=== PATIENT | male | born 1960 | race Hispanic/Latino ===

== ENCOUNTER 2018-08-26 07:22 | Observation (INO) | payer SELFPAY ==
[2018-08-26 07:46] LABS: Absolute Lymphocytes (CBC) 1.9 K/uL (0.7-4.9); Absolute Monocytes 1.7 K/uL (0.1-1.3); Absolute Neutrophil 12.7 K/uL (1.8-8.0); Basophils % 0.5 % (0-1.3); Eosinophils % 0.7 % (0-4.4); Hematocrit 47.9 % (39.6-49.0); Lymphocytes % 11.6 % (15.3-44.8); MPV 8.9 fL (7.6-11.3); Monocytes % 10.2 % (3.3-12.3); RBC Red Blood Cell Count 5.46 M/uL (4.33-5.43)
[2018-08-26] MEDS ORDERED: ASPIRIN 81 MG CHEWABLE TABLET ONE (07:46)
[2018-08-26] MEDS ORDERED: NITROGLYCERIN 0.4 MG/TAB SL ONE ×2 (07:47→08:15)
[2018-08-26 08:03] LABS: ALT/SGPT 23 U/L (12-78); AST/SGOT 18 U/L (15-37); Albumin 3.7 g/dL (3.4-5.0); Alkaline Phosphatase 76 U/L (45-117); BUN Blood Urea Nitrogen 11 mg/dL (7-18); Bicarbonate 25 mmol/L (21-32); Bilirubin Direct 0.2 mg/dL (0-0.2); Glucose Level 301 mg/dL (74-106); Magnesium 2.1 mg/dL (1.8-2.4); Potassium 3.7 mmol/L (3.5-5.1); Protein, Total 8.3 g/dL (6.4-8.2); Sodium Level 134 mmol/L (136-145); Troponin (Emerg Dept Use Only) < 0.02 ng/mL (0.0-0.045)
--- NOTE | 2018-08-26 08:18 | RAD REPORT ---
EXAM DESCRIPTION: RAD - Chest Single View - 08/26/2018 7:42 am CLINICAL HISTORY: Chest pain radiating to each shoulder COMPARISON: None. TECHNIQUE: AP portable chest image was obtained 0740 hours . FINDINGS: Lung volumes are low. Atelectasis or infiltrate suspected in the retrocardiac left base. H eart and vasculature are normal. No measurable pleural effusion and no pneumothorax. No acute bony ab normality seen. No acute aortic findings suspected. IMPRESSION: Suspected infiltrate or atelectasis retrocardiac left base.
--- NOTE | 2018-08-26 08:40 | ER ---
Nurse's Notes [facility] Name: Russel Hilliard Age: 57 yrs Sex: Male : 1960 Arrival Date: 08/26/2018 Time: 07:23 Bed 5 Private MD: None, None Diagnosis: Chest pain, unspecified Presentation: 08/26 07:23 Presenting complaint: Patient states: mid-sternal chest pain radiating to cuate shoulders aa5 since 1999 last night. Pt also reports mild SOB, denies cough. Pt reports CP is worse today. 07:23 Transition of care: patient was not received from another setting of care. Onset of aa5 symptoms was August 2018. Risk Assessment: Do you want to hurt yourself or someone else? Patient reports no desire to harm self or others. Care prior to arrival: ASA at 0300 today. 07:23 Method Of Arrival: Ambulatory aa5 07:53 Initial Sepsis Screen: Does the patient meet any 2 criteria? No. Patient's initial ph sepsis screen is negative. Does the patient have a suspected source of infection? No. Patient's initial sepsis screen is negative. 07:53 Acuity: TRENA 3 ph Historical: - Allergies: 07:23 No Known Allergies; aa5 - PMHx: 07:23 Diabetes - NIDDM; Hypertension; aa5 - PSHx: 07:23 None; aa5 - Immunization history:: Adult Immunizations unknown. - Family history:: not pertinent. - Ebola Screening: : No symptoms or risks identified at this time. - Social history:: Smoking status: Patient/guardian denies using tobacco. - Hospitalizations: : No recent hospitalization is reported. Screenin:48 Abuse screen: Denies threats or abuse. Denies injuries from another. Nutritional ph screening: No deficits noted. Tuberculosis screening: No symptoms or risk factors identified. Fall Risk None identified. Assessment: 07:35 General: Appears in no apparent distress. uncomfortable, well groomed, Behavior is ph calm, cooperative, appropriate for age, Denies fever, feeling ill. Pain: Complains of pain in anterior aspect of left upper chest Pain does not radiate. Pain currently is 8 out of 10 on a pain scale. Quality of pain is described as pressure, Pain began "last night". Neuro: Level of Consciousness is awake, alert, obeys commands, Oriented to person, place, time, situation. Cardiovascular: Reports chest pain, shortness of breath, Denies lightheadedness, nausea, vomiting, Capillary refill < 3 seconds in bilateral fingers Patient's skin is warm and dry. Rhythm is sinus rhythm Chest pain quality is pressure, is located in left anterior chest wall. Respiratory: Airway is patent Respiratory effort is even, unlabored, Respiratory pattern is regular, symmetrical, Breath sounds are clear bilaterally. GI: No signs and/or symptoms were reported involving the gastrointestinal system. Derm: Skin is intact, is healthy with good turgor, Skin is pink, warm \\T\\ dry. Musculoskeletal: Circulation, motion, and sensation intact. Range of motion: intact in all extremities. 08:48 Reassessment: Patient appears in no apparent distress at this time. Patient and/or ph family updated on plan of care and expected duration. Pain level reassessed. Patient is alert, oriented x 3, equal unlabored respirations, skin warm/dry/pink. Pt reports that pain has decreased to 6/10, ERP at bedside to speak w/ pt about being admitted to hospital, VSS at this time. 10:13 Reassessment: Patient appears in no apparent distress at this time. Patient and/or ph family updated on plan of care and expected duration. Pain level reassessed. Patient is alert, oriented x 3, equal unlabored respirations, skin warm/dry/pink. Report called to 4th floor, pt taken to room via wheelchair by home service technician. Vital Signs: 07:25 Weight 99.79 kg (R); Height 5 ft. 6 in. (167.64 cm) (R); aa5 07:30 BP 170 / 100; Pulse 97; Resp 18; Temp 97.9; Pulse Ox 94% on R/A; Pain 8/10; ph 08:00 BP 138 / 87; Pulse 102; ch 08:29 BP 142 / 91; Pulse 101; Resp 18; Pulse Ox 99% ; ch 09:45 BP 161 / 97; Pulse 110; Resp 16; Temp 99.1(TE); Pulse Ox 96% on R/A; ph 07:25 Body Mass Index 35.51 (99.79 kg, 167.64 cm) aa5 ED Course: 07:23 Patient arrived in ED. mr 07:23 Arm band placed on Patient placed in an exam room, on a stretcher. aa5 07:24 None, None is Private Physician. mr 07:25 Riley Padilla MD is Attending Physician. rn 07:34 Zoie Dean, ROXANNA is Primary Nurse. ph 07:35 EKG done, by production technologist. reviewed by Riley Padilla MD. at1 07:35 Inserted saline lock: 20 gauge in right antecubital area, using aseptic technique. ph Blood collected. 07:39 X-ray completed. Portable x-ray completed in exam room. Patient tolerated procedure jb2 well. 07:39 XRAY Chest (1 view) In Process Unspecified. EDMS 07:53 Triage completed. ph 08:39 Leandro Bonner DO is Hospitalizing Provider. rn 08:48 Patient admitted, IV remains in place. Patient maintains SpO2 saturation greater than ph 95% on room air. 09:44 Patient has correct armband on for positive identification. Placed in gown. Bed in low ph position. Call light in reach. Side rails up X2. hospital monitor on. Pulse ox on. NIBP on. Warm blanket given. 10:01 Flu Sent. 5 10:01 Strep Sent. [facility] 10:01 Flu and/or RSV swab sent to lab. Strep swab sent to lab. [facility] 10:14 No provider procedures requiring assistance completed. ph Administered Medications: 07:44 Drug: Aspirin Chewable Tablet 324 mg Route: PO; ph 08:50 Follow up: Response: No adverse reaction ph 07:44 Drug: Nitroglycerin 0.4 mg Route: Sublingual; ph 08:50 Follow up: Response: No adverse reaction; Pain is decreased ph 08:05 Drug: Nitroglycerin 0.4 mg Route: Sublingual; 08:50 Follow up: Response: No adverse reaction; Pain is decreased ph Outcome: 08:39 Decision to Hospitalize by Provider. rn 10:14 Admitted to Tele accompanied by tech, family with patient, via wheelchair, room 416, ph with chart. 10:14 Condition: stable 10:18 Patient left the ED. ph Signatures: Dispatcher [employer] EDMS Love Barton, RN RN mary lou Chen Ed Yuen jb2 Riley Padilla MD MD rn Calderon, Audri, RN RN aa5 Consuelo Dunham, reed repairer EKG Tat1 Zoie Dean RN RN ph Martinez, Maria 5
--- NOTE | 2018-08-26 08:40 | EDPHYS ---
Physician Documentation [facility] Name: Russel Hilliard Age: 57 yrs Sex: Male : 1960 Arrival Date: 08/26/2018 Time: 07:23 Bed 5 Private MD: None, None ED Physician Riley Padilla HPI: 08/26 07:28 This 57 yrs old Male presents to ER via Unassigned with complaints of Chest rn Pain. 07:28 The patient or guardian reports chest pain that is located primarily in the substernal rn area. Onset: last night. The pain radiates to both shoulders. Associated signs and symptoms: Pertinent positives: lightheadedness, nausea, Pertinent negatives: abdominal pain, cough, diaphoresis, syncope, vomiting. The chest pain is described as a pressure. Duration: The patient or guardian reports a single episode, that is still ongoing. Modifying factors: The symptoms are alleviated by nothing. the symptoms are aggravated by nothing. Severity of pain: At its worst the pain was moderate in the emergency department the pain is unchanged. The patient has experienced a previous episode. Reports chest pain since last night, assoc with sob and nausea/lightheadedness, no syncope, reports able to sleep only about 3 hours last night, still having pain, told in [place] in past had "pre-heart attack", no abd pain.. Historical: - Allergies: 07:23 No Known Allergies; aa5 - PMHx: 07:23 Diabetes - NIDDM; Hypertension; aa5 - PSHx: 07:23 None; aa5 - Immunization history:: Adult Immunizations unknown. - Family history:: not pertinent. - Ebola Screening: : No symptoms or risks identified at this time. - Social history:: Smoking status: Patient/guardian denies using tobacco. - Hospitalizations: : No recent hospitalization is reported. ROS: 07:28 Constitutional: Negative for fever, chills, and weight loss, Eyes: Negative for injury, rn pain, redness, and discharge, Neck: Negative for injury, pain, and swelling, Cardiovascular: + chest pain Respiratory: Negative for shortness of breath, cough, wheezing, and pleuritic chest pain, Abdomen/GI: Negative for abdominal pain, vomiting, diarrhea, and constipation, MS/Extremity: Negative for injury and deformity, Skin: Negative for injury, rash, and discoloration, Neuro: Negative for headache, weakness, numbness, tingling, and seizure. Exam: 07:28 Constitutional: This is a well developed, well nourished patient who is awake, alert, rn appears concerned and uncomfortable Head/Face: Normocephalic, atraumatic. Eyes: Pupils equal round and reactive to light, extra-ocular motions intact. Lids and lashes normal. Conjunctiva and sclera are non-icteric and not injected. Cornea within normal limits. Periorbital areas with no swelling, redness, or edema. ENT: MMM Neck: Trachea midline, no thyromegaly or masses palpated, and no cervical lymphadenopathy. Supple, full range of motion without nuchal rigidity, or vertebral point tenderness. No Meningismus. Cardiovascular: tachycardic, regular, no murmur Respiratory: Lungs have equal breath sounds bilaterally, clear to auscultation. No rales, rhonchi or wheezes noted. No increased work of breathing, no retractions or nasal flaring. Abdomen/GI: soft, non-tender Skin: Warm, dry with normal turgor. Normal color with no rashes, no lesions, and no evidence of cellulitis. MS/ Extremity: Pulses equal, no cyanosis. Neurovascular intact. Full, normal range of motion. Equal circumference. Neuro: Awake and alert, GCS 15, oriented to person, place, time, and situation. Cranial nerves II-XII grossly intact. Motor strength 5/5 in all extremities. Sensory grossly intact. Cerebellar exam normal. Normal gait. Vital Signs: 07:25 Weight 99.79 kg (R); Height 5 ft. 6 in. (167.64 cm) (R); aa5 07:30 BP 170 / 100; Pulse 97; Resp 18; Temp 97.9; Pulse Ox 94% on R/A; Pain 8/10; ph 08:00 BP 138 / 87; Pulse 102; ch 08:29 BP 142 / 91; Pulse 101; Resp 18; Pulse Ox 99% ; ch 09:45 BP 161 / 97; Pulse 110; Resp 16; Temp 99.1(TE); Pulse Ox 96% on R/A; ph 07:25 Body Mass Index 35.51 (99.79 kg, 167.64 cm) aa5 MDM: 07:25 Patient medically screened. rn 08:38 Differential diagnosis: acute myocardial infarction, acute pericarditis, coronary rn artery disease gastroesophageal reflux disease (GERD), pericarditis, pleurisy, pneumonia, pneumothorax. The patient was given aspirin in the Emergency Department. Data reviewed: vital signs, nurses notes, lab test result(s), EKG, radiologic studies, plain films, and as a result, I will admit patient. Counseling: I had a detailed discussion with the patient and/or guardian regarding: the historical points, exam findings, and any diagnostic results supporting the discharge/admit diagnosis, lab results, radiology results, the need for further work-up and treatment in the hospital. Response to treatment: the patient's symptoms have markedly improved after treatment, the patient's symptoms have resolved after treatment, the patient's condition has returned to base line, and as a result, I will admit patient. ED course: Pt with improvement after nitro x 2, no further chest pain. CXR showed suspected retrocardiac infiltrate but patient without cough or fever, will admit for further cardiac evaluation. . 08/26 07:26 Order name: Basic Metabolic Panel; Complete Time: 08:03 08/26 07:26 Order name: CBC with Diff; Complete Time: 07:56 08/26 07:26 Order name: LFT's; Complete Time: 08:03 08/26 07:26 Order name: Magnesium; Complete Time: 08:03 08/26 07:26 Order name: Troponin (emerg Dept Use Only); Complete Time: 08:03 08/26 09:29 Order name: Procalcitonin 08/26 07:26 Order name: XRAY Chest (1 view); Complete Time: 08:33 08/26 07:26 Order name: EKG; Complete Time: 07:27 08/26 07:26 Order name: Cardiac monitoring; Complete Time: 07:34 08/26 09:32 Order name: Strep 08/26 09:32 Order name: Flu 08/26 07:26 Order name: EKG - Nurse/Tech; Complete Time: 07:34 08/26 07:26 Order name: IV Saline Lock; Complete Time: 07:34 08/26 07:26 Order name: Labs collected and sent; Complete Time: 07:34 rn 08/26 07:26 Order name: O2 Per Protocol; Complete Time: 07:34 rn 08/26 07:26 Order name: O2 Sat Monitoring; Complete Time: 07:34 rn Administered Medications: 07:44 Drug: Aspirin Chewable Tablet 324 mg Route: PO; ph 08:50 Follow up: Response: No adverse reaction ph 07:44 Drug: Nitroglycerin 0.4 mg Route: Sublingual; ph 08:50 Follow up: Response: No adverse reaction; Pain is decreased ph 08:05 Drug: Nitroglycerin 0.4 mg Route: Sublingual; ch 08:50 Follow up: Response: No adverse reaction; Pain is decreased ph Disposition: 08/26/18 08:39 Hospitalization ordered by Leandro Bonner for Observation. Preliminary diagnosis is Chest pain, unspecified. - Bed requested for Telemetry/MedSurg (observation). - Status is Observation. ph - Condition is Stable. - Problem is new. - Symptoms have improved. UTI on Admission? No Signatures: Dispatcher [employer] EDMS Love Barton RN RN ch Nieto, Roman, MD MD rn Calderon, Audri, RN RN aa5 Zoie Dean RN RN Rosey Toure RN RN df Corrections: (The following items were deleted from the chart) 09:44 08:39 Hospitalization Ordered by Leandro Bonner DO for Observation. Preliminary df diagnosis is Chest pain, unspecified. Bed requested for Telemetry/MedSurg (observation). Status is Observation. Condition is Stable. Problem is new. Symptoms have improved. UTI on Admission? No. rn 10:18 09:44 08/26/2018 08:39 Hospitalization Ordered by Leandro Bonner DO for Observation. ph Preliminary diagnosis is Chest pain, unspecified. Bed requested for Telemetry/MedSurg (observation). Status is Observation. Condition is Stable. Problem is new. Symptoms have improved. UTI on Admission? No. df
[2018-08-26] MEDS ORDERED: ONDANSETRON 4 MG/2 ML VIAL IV PRN (10:58)
[2018-08-26] MEDS ORDERED: NITROGLYCERIN 0.4 MG/TAB SL PRN (10:58)
[2018-08-26] MEDS ORDERED: MORPHINE 4 MG/ML SYR IV PRN (10:58)
[2018-08-26] MEDS ORDERED: ACETAMINOPHEN 500 MG TAB PO PRN (10:58)
[2018-08-26] MEDS: CEFTRIAXONE/SWI 1gm 1 GM/10 ML SYR IV SCH (11:41)
[2018-08-26] MEDS: NA CHLORIDE 0.9% 1,000 ML IV SCH (11:41)
[2018-08-26] MEDS ORDERED: BENZONATATE 100 MG CAP PO PRN (11:42)
[2018-08-26 11:48] LABS: CKMB Creatine Kinase MB < 1.0 ng/mL (0.3-3.6); Thyroid Stimulating Hormone 0.513 uIU/mL (0.360-3.740)
--- NOTE | 2018-08-26 11:51 | P.HP ---
Certification for Inpatient Patient admitted to: Observation With expected LOS: <2 Midnights Patient will require the following post-hospital care: None Practitioner: I am a practitioner with admitting privileges, knowledge of patient current condition, hospital course, and medical plan of care. Services: Services provided to patient in accordance with Admission requirements found in Title 42 Section 412.3 of the Code of Federal Regulations Patient History Date of Service: 08/26/18 Primary Care Provider: None Reason for admission: Left-sided chest pain History of Present Illness: 57-year-old male presented to the emergency room with left-sided chest pain. Patient reported left-sided chest pain. Patient denied any fever, chills, cough , or shortness of breath. Patient came to the ER for further evaluation. Patient was given aspirin and nitroglycerin which helped with the pain. Patient with history of hypertension and diabetes. In the ER patient given aspirin and nitro with improvement of symptoms. Blood pressure elevated at 151/94. Heart rate 110. White count elevated. CBC stable. Initial cardiac enzymes unremarkable. Patient was admitted for further evaluation. When I saw the patient in the ER, patient appeared stable. Oxygen saturations within normal range. Patient denies any cough, congestion or sick contacts. Chest x-ray showed possible left lower lobe pneumonia. After further review of the lab strep test was positive along with influenza B. Allergies No Known Allergies Allergy (Unverified 08/26/18 10:00) Home medications list reviewed: Yes Home Medications: Aspirin 81 mg PO DAILY 08/26/18 Lisinopril 10 mg PO DAILY 08/26/18 Metformin HCl [Glucophage*] 500 mg PO DAILY 08/26/18 Nifedipine [Nifedipine ER] 30 mg PO DAILY 08/26/18 - Past Medical/Surgical History Diabetic: Yes -: Diabetes mellitus type 2, non-insulin dependent -: Hypertension Past Surgical History: Patient denies surgical history Psychosocial/ Personal History: Patient is . He works as an aviation electrician. He has 3 children. - Family History Father -: Heart disease, Diabetes - Social History Smoking Status: Never smoker Alcohol use: Yes CD- Drugs: No Caffeine use: Yes Place of Residence: Home Review of Systems General: As per HPI Eyes: Unremarkable ENT: Unremarkable Respiratory: Unremarkable Cardiovascular: Chest Pain, As per HPI Gastrointestinal: Unremarkable Genitourinary: Unremarkable Musculoskeletal: Unremarkable Integumentary: Unremarkable Neurological: Unremarkable Lymphatics: Unremarkable Physical Examination - Vital Signs Temperature: 99.1 F Blood Pressure: 161/97 Pulse: 110 Respirations: 16 - Physical Exam General: Alert, In no apparent distress, Oriented x3, Cooperative HEENT: Atraumatic, Normocephalic, PERRLA, Mucous membr. moist/pink Neck: Supple, No Thyromegaly Respiratory: Clear to auscultation bilaterally, Normal air movement Cardiovascular: Normal pulses, Regular rate/rhythm Gastrointestinal: Normal bowel sounds, Soft and benign, Non-distended, No tenderness, No masses, No rebound, No guarding Musculoskeletal: No erythema, No tenderness, No warmth Integumentary: No tenderness/swelling, No erythema, No warmth, No cyanosis Neurological: Normal speech, Normal strength at 5/5 x4 extr, Normal tone, Normal affect Lymphatics: No axilla or inguinal lymphadenopathy - Studies Laboratory Data (last 24 hrs) 08/26/18 07:30: WBC 16.5 H, Hgb 16.4, Hct 47.9, Plt Count 301 08/26/18 07:30: Sodium 134 L, Potassium 3.7, BUN 11, Creatinine 0.91, Glucose 301 H, Magnesium 2.1, Total Bilirubin 1.0, AST 18, ALT 23, Alkaline Phosphatase 76 Assessment and Plan - Plan Impression: Left-sided chest pain likely noncardiac positive for Streptococcus and influenza B Possible left lower lobe pneumonia Diabetes mellitus type 2, [id number] Hypertension Plan: Left-sided chest pain likely noncardiac positive for Streptococcus and influenza B: Patient will be admitted for further evaluation. Left-sided chest pain resolved with aspirin and nitroglycerin. Patient will need to be evaluated from a cardiac standpoint. Will continue to monitor on telemetry and obtain cardiac enzymes. Echocardiogram and cardiac stress test to be ordered. After further review and lab ordered, patient was found to be positive for Streptococcus and influenza B. Will start Tamiflu. Patient already started on Rocephin and Zithromax. Will recheck chest x-ray in the morning. Will continue with IV fluids. Will provide medication for cough and congestion. Will reassess tomorrow. Await further recommendations from cardiology. Suspect chest pain related to underlying pneumonia. Possible left lower lobe pneumonia: Suspect underlying pneumonia. Will start Rocephin and Zithromax. Will reassess tomorrow. Will recheck chest x-ray tomorrow. Diabetes mellitus type 2, [id number]: Will continue with sliding scale. Will monitor and adjust appropriately. Hypertension: Will start metoprolol. Will continue with lisinopril. Blood pressure needs to be better controlled. Will make further adjustments. Discharge Plan: Home Plan to discharge in: 24 Hours - Advance Directives Does patient have a Living Will: No Does patient have a Durable POA for Healthcare: No - Code Status/Comfort Care Code Status Assessed: Yes (Patient full code.) Time Spent Managing Pts Care (In Minutes): 55
[2018-08-26] MEDS ORDERED: AZITHROMYCIN IV 500 MG in NA CHLORIDE 0.9% 250 ML IVPB SCH (12:00)
--- NOTE | 2018-08-26 13:26 | EKG ---
Test Date: 2018-08-26 Test Time: 07:26:50 Nuclear Instructor: ANEESH MEASUREMENT RESULTS: Intervals: Rate: 111 OK: 198 QRSD: 100 QT: 336 QTc: 456 Combs: P: 54 OK: 198 QRS: -50 T: 21 INTERPRETIVE STATEMENTS: Sinus tachycardia Left axis deviation Incomplete right bundle branch block Abnormal ECG No previous ECG available for comparison Electronically Signed On 08-26-18 13:25:47 BRAKE HOLDER by Ad Hines
[2018-08-26] MEDS: INSULIN -REGULAR HUMAN 50 UNIT/0.5 ML ML SQ SCH ×3 (13:33→21:35)
[2018-08-26 14:39] VITALS: BMI 35.5
[2018-08-26 15:39] LABS: Creatine Phosphokinase 91 U/L (39-308); Troponin I < 0.02 ng/mL (0.0-0.045)
[2018-08-26] MEDS ORDERED: ENOXAPARIN 40 MG/0.4 ML SQ SCH (17:00)
[2018-08-26] MEDS: METOPROLOL TAR 25 MG TAB PO SCH (17:38)
[2018-08-26 18:35] LABS: Urine Appearance CLEAR; Urine Bilirubin NEGATIVE (NEG); Urine Blood NEGATIVE (NEG); Urine Color YELLOW; Urine Glucose 3+ (NEG); Urine Protein 3+ (NEG); Urine Specific Gravity >=1.030 (1.005-1.030)
[2018-08-26 18:44] LABS: Urine Microscopic Reflex ORDER UMIC
[2018-08-26 18:52] LABS: Urine Bacteria <20 /HPF (NONE SEEN); Urine Culture Reflex Order NOT NEEDED; Urine Mucus 1+ /HPF (NONE SEEN); Urine RBC <5 /HPF (NONE SEEN)
--- NOTE | 2018-08-26 19:05 | CON ---
History Of Present Illness: Mr. Hilliard is 57. He came to the hospital with pain. The pain was ple uritic, more in the left side of his chest, some in the back. He has never had myocardial infarction or stroke. Since he has been here, it is apparent he has a left retrocardiac infiltrate consistent with pneumonia. He also has an elevated white blood cell count with a left shift. Really seems that his chest pain is caused by pneumonia, not by something else. He has never had any vascular disease . Does not use tobacco presently, he has smoked. Never had any testing done on his heart. He has u nderlying diabetes and obesity. Medications: He takes nifedipine, metformin, lisinopril, and aspirin. Allergies: HE HAS NO ALLERGIES. Physical Examination: Vital signs: Five feet and 6 inches, 220 pounds. HEENT: Normal. Lungs: Clear. Cardiac: Normal. Abdomen: Soft. Extremities: Normal. Chest x-ray, left retrocardiac infiltrate. I am a little surprised that I do not actually hear somet kenya there, but all of this points to be pneumonia. I do not think we need to do an extensive cardia c workup. Thank you very much for your kind referral of Mr. Cody Hilliard. I will follow him with you. MARILY/SATHYA Voice ID: [id number] Report ID: [id number]
[2018-08-26] MEDS: LISINOPRIL 10 MG TAB PO SCH (21:35)
[2018-08-26] MEDS: FAMOTIDINE 20 MG TAB PO SCH (21:35)
[2018-08-26] MEDS: OSELTAMIVIR 75 MG CAP PO SCH (21:35)
[2018-08-26] MEDS: ATORVASTATIN 40 MG TAB PO SCH (21:35)
[2018-08-26] MEDS: GUAIFENESIN 600 MG SA TAB PO SCH (21:35)
[2018-08-26 23:20] LABS: Troponin I 2.92 ng/mL (0.0-0.045)
[2018-08-27] MEDS ORDERED: ENOXAPARIN 60 MG/0.6 ML SQ ONE (00:27)
[2018-08-27 03:43] LABS: Absolute Lymphocytes (CBC) 2.1 K/uL (0.7-4.9); Absolute Monocytes 1.8 K/uL (0.1-1.3); Absolute Neutrophil 8.7 K/uL (1.8-8.0); Basophils % 0.8 % (0-1.3); Eosinophils % 1.4 % (0-4.4); Hematocrit 38.4 % (39.6-49.0); RBC Red Blood Cell Count 4.38 M/uL (4.33-5.43)
[2018-08-27 03:50] LABS: Magnesium 2.1 mg/dL (1.8-2.4); Potassium 3.6 mmol/L (3.5-5.1)
[2018-08-27] MEDS: NA CHLORIDE 0.9% 1,000 ML IV SCH (06:00)
[2018-08-27] MEDS: METOPROLOL TAR 25 MG TAB PO SCH (07:18)
--- NOTE | 2018-08-27 08:32 | RAD REPORT ---
EXAM DESCRIPTION: RAD - Chest Pa And Lat (2 Views) - 08/27/2018 6:41 am CLINICAL HISTORY: follow up chest pain, evalaute for pneumonia Chest pain. COMPARISON: Chest Single View dated 08/26/2018 FINDINGS: Since the comparative study, there has been mild worsening in the left base retrocardiac i nfiltrate likely representing pneumonia. The heart is upper limit of normal in size. No displaced fra ctures. IMPRESSION: Mild worsening of left retrocardiac pneumonia since prior study.
[2018-08-27] MEDS: INSULIN -REGULAR HUMAN 50 UNIT/0.5 ML ML SQ SCH ×4 (09:04→22:32)
[2018-08-27] MEDS: ENOXAPARIN 100 MG/ML SYR SQ SCH ×2 (09:04→22:32)
[2018-08-27] MEDS: CEFTRIAXONE/SWI 1gm 1 GM/10 ML SYR IV SCH (09:04)
[2018-08-27] MEDS: GUAIFENESIN 600 MG SA TAB PO SCH ×2 (09:05→22:31)
[2018-08-27] MEDS: ASPIRIN EC 81 MG TAB PO SCH (09:05)
[2018-08-27] MEDS: FAMOTIDINE 20 MG TAB PO SCH ×2 (09:06→22:31)
[2018-08-27] MEDS: OSELTAMIVIR 75 MG CAP PO SCH ×2 (09:08→22:31)
[2018-08-27] MEDS ORDERED: GLUCAGON 1 MG/VIAL IM PRN (10:06)
[2018-08-27] MEDS ORDERED: D50W 25 GM/50 ML SYRINGE IV PRN (10:06)
--- NOTE | 2018-08-27 10:13 | P.PN ---
Subjective Date of Service: 08/27/18 Primary Care Provider: None Chief Complaint: Left-sided chest pain Subjective: Improving (Patient without any significant fever, cough, shortness of breath. Troponin elevated last night. Patient now on full-dose Lovenox. No chest pain noted.) Physical Examination - Vital Signs Temperature: 97.9 F Blood Pressure: 163/95 Pulse: 94 Respirations: 20 Pulse Ox (%): 94 - Physical Exam General: Alert, In no apparent distress, Oriented x3, Cooperative HEENT: Atraumatic Neck: Supple Respiratory: Crackles/rales (Slight crackles to the left base) Cardiovascular: Normal pulses, Regular rate/rhythm Gastrointestinal: Normal bowel sounds, Soft and benign, Non-distended, No tenderness, No masses, No rebound, No guarding Musculoskeletal: No erythema, No tenderness, No warmth Integumentary: No tenderness/swelling, No erythema, No warmth, No cyanosis Neurological: Normal speech, Normal strength at 5/5 x4 extr, Normal tone, Normal affect - Studies Medications List Reviewed: Yes Assessment & Plan Discharge Plan: Home Plan to discharge in: 24 Hours Physician Review Additional Text: Impression: Left-sided chest pain secondary to Streptococcus left-sided pneumonia with positive influenza B and elevated troponin likely non ST wave [place] Diabetes mellitus type 2, [id number] Hypertension Hyperlipidemia Obesity, BMI 35.5 Plan: Left-sided chest pain secondary to Streptococcus left-sided pneumonia with positive influenza B and elevated troponin likely non ST wave [place]: Patient clinically stable at this time. Troponin increased yesterday likely from stress related to pneumonia and influenza. Case discussed at length with cardiology. Will continue with Lovenox full dose. No need for cardiac evaluation at this time due to pneumonia and influenza. Will check echocardiogram. If echocardiogram significantly abnormal patient may require heart catheterization prior to discharge. Otherwise heart catheterization can be done as an outpatient. Will continue monitor patient Overnite. Will adjust IV antibiotics to oral. Patient now on aspirin, Lipitor, and metoprolol. Patient also on lisinopril. Will continue to adjust medication. Will reassess tomorrow for possible discharge. Will recheck EKG. Await further recommendations from cardiology. Diabetes mellitus type 2, [id number]: Will check A1c. Will continue sliding scale. Will start basal insulin. Patient may require basal insulin at discharge. Hypertension: Will increase metoprolol for better blood pressure control. Will continue with his lisinopril. Will continue to monitor and adjust appropriately. Hyperlipidemia: Suspect elevated lipid panel. Due to elevation of troponin, statin medication has been started. Will check lipid panel. Obesity, BMI 35.5: Will continue to address lifestyle modification education. Time Spent Managing Pts Care (In Minutes): 55
[2018-08-27] MEDS: METOPROLOL TAR 50 MG TAB PO SCH (17:03)
[2018-08-27] MEDS: ATORVASTATIN 40 MG TAB PO SCH (21:00)
[2018-08-27] MEDS ORDERED: INSULIN GLARGINE 100 UNITS/ML SQ SCH (21:00)
[2018-08-27] MEDS: LISINOPRIL 10 MG TAB PO SCH (22:30)
[2018-08-27] MEDS: AMOX/K CLAV 875 MG TAB PO SCH (22:31)
[2018-08-28] MEDS: METOPROLOL TAR 50 MG TAB PO SCH (05:08)
[2018-08-28] MEDS: NA CHLORIDE 0.9% 1,000 ML IV SCH (05:08)
[2018-08-28 06:26] LABS: Absolute Lymphocytes (CBC) 2.3 K/uL (0.7-4.9); Absolute Monocytes 1.2 K/uL (0.1-1.3); Absolute Neutrophil 5.4 K/uL (1.8-8.0); Basophils % 0.9 % (0-1.3); Eosinophils % 4.2 % (0-4.4); Hematocrit 40.9 % (39.6-49.0); Lymphocytes % 24.6 % (15.3-44.8); MPV 8.8 fL (7.6-11.3); Monocytes % 12.9 % (3.3-12.3); RBC Red Blood Cell Count 4.66 M/uL (4.33-5.43)
[2018-08-28 06:44] LABS: BUN Blood Urea Nitrogen 12 mg/dL (7-18); Bicarbonate 25 mmol/L (21-32); Glucose Level 176 mg/dL (74-106); HDL Cholesterol 35 mg/dL (40-60); LDL Cholesterol, Calculated 96 (<130); Magnesium 2.3 mg/dL (1.8-2.4); Potassium 3.7 mmol/L (3.5-5.1); Sodium Level 138 mmol/L (136-145)
--- NOTE | 2018-08-28 07:23 | ECHO ---
HEIGHT: 5 ft 6 in WEIGHT: 220 lb 0 oz DATE OF STUDY: 08/27/[address]: Leandro Bonner DO 2-DIMENSIONAL: YES M.MODE: YES DOPPLER: YES COLOR FLOW: YES TDS: PORTABLE: DEFINITY: BUBBLE STUDY: DIAGNOSIS: CHEST PAIN CARDIAC HISTORY: CATHERIZATION: NO SURGERY: NO PROSTHETIC VALVE: NO PACEMAKER: NO MEASUREMENTS (cm) DIASTOLIC (NORMALS) SYSTOLIC (NORMALS) IVSd 1.3 (0.6-1.2) LA Diam 4.0 (1.9-4.0) LVEF 51% LVIDd 5.0 (3.5-5.7) LVIDs 3.7 (2.0-3.5) %FS 26% LVPWd 1.6 (0.6-1.2) Ao Diam 3.4 (2.0-3.7) 2 DIMENSIONAL ASSESSMENT: RIGHT ATRIUM: NORMAL LEFT ATRIUM: DILATED RIGHT VENTRICLE: NORMAL LEFT VENTRICLE: LEFT VENTRICULAR HYPERTROPHY TRICUSPID VALVE: NORMAL MITRAL VALVE: NORMAL PULMONIC VALVE: NORMAL AORTIC VALVE: NORMAL PERICARDIAL EFFUSION: NONE AORTIC ROOT: NORMAL LEFT VENTRICULAR WALL MOTION: NORMAL DOPPLER/COLOR FLOW: NORMAL COMMENTS: NORMAL LEFT VENTRICULAR EJECTION FRACTION. DILATED LEFT ATRIUM. LEFT VENTRICULAR HYPERTROPHY. TECHNOLOGIST: KAI YOUNG
[2018-08-28] MEDS: INSULIN -REGULAR HUMAN 50 UNIT/0.5 ML ML SQ SCH ×2 (07:30→12:23)
[2018-08-28] MEDS ORDERED: LISINOPRIL 10 MG TAB PO SCH (09:00)
--- NOTE | 2018-08-28 10:03 | P.DS ---
Admission Date: 08/26/18 Discharge Date: 08/28/18 Primary Care Provider: None Disposition: ROUTINE DISCHARGE Discharge Condition: GOOD Reason for Admission: Left-sided chest pain Consultations: Cardiology-Dr. Hines/Dr. Obrien Procedures: ECHO: EF 51% LEFT VENTRICULAR WALL MOTION: NORMAL DOPPLER/COLOR FLOW: NORMAL COMMENTS: NORMAL LEFT VENTRICULAR EJECTION FRACTION. DILATED LEFT ATRIUM. LEFT VENTRICULAR HYPERTROPHY. CXR: CLINICAL HISTORY: follow up chest pain, evalaute for pneumonia Chest pain. COMPARISON: Chest Single View dated 08/26/2018 FINDINGS: Since the comparative study, there has been mild worsening in the left base retrocardiac infiltrate likely representing pneumonia. The heart is upper limit of normal in size. No displaced fractures. IMPRESSION: Mild worsening of left retrocardiac pneumonia since prior study. Medical Problem List: Left-sided chest pain secondary to Streptococcus left retrocardiac pneumonia with positive influenza B and elevated troponin likely related to non ST wave [place] Diabetes mellitus type 2, [id number], A1c 9.7 Hypertension Hyperlipidemia Obesity, BMI 35.5 GERD Brief History of Present Illness: 57-year-old male presented to the emergency room with left-sided chest pain. Patient reported left-sided chest pain. Patient denied any fever, chills, cough , or shortness of breath. Patient came to the ER for further evaluation. Patient was given aspirin and nitroglycerin which helped with the pain. Patient with history of hypertension and diabetes. In the ER patient given aspirin and nitro with improvement of symptoms. Blood pressure elevated at 151/94. Heart rate 110. White count elevated. CBC stable. Initial cardiac enzymes unremarkable. Patient was admitted for further evaluation. When I saw the patient in the ER, patient appeared stable. Oxygen saturations within normal range. Patient denies any cough, congestion or sick contacts. Chest x-ray showed possible left lower lobe pneumonia. After further review of the lab strep test was positive along with influenza B. Hospital Course: Patient presented with left-sided chest pain. Patient found to be positive for Streptococcus and influenza B. pneumonia was also identified to the left retrocardiac area. Patient was admitted for further evaluation. In the process patient had initial troponin that was unremarkable. Subsequent troponin was elevated. This likely indicated non ST wave [place]. Patient seen and evaluated by Cardiology. No cardiac intervention was recommended due to his pneumonia and influenza. Echocardiogram unremarkable with normal ejection fraction. Patient without significant chest pain, shortness of breath, fever or chills. Patient did well in his stay. At discharge patient will continue with Augmentin 875 mg 1 pill twice daily for 7 days and Tamiflu 75 mg 1 pill twice daily for 2 days. Tessalon Perles 100 mg 1 pill 3 times a day as needed for cough will also be provided. Patient will also continue with aspirin 81 mg daily. Recommendation is for the patient to follow up with cardiology in 1-2 weeks to follow up on his care. Patient will likely require cardiac stress test to further assess his condition. This will be done as an outpatient once pneumonia and influenza has cleared. Recommendation to recheck chest x-ray in 2 -4 weeks to monitor resolution. Patient with diabetes. A1c 9.7. Patient previously on metformin at low dose. At discharge, metformin has been increased to 1000 mg 1 pill twice daily. Recommend to monitor blood sugar closely. Recommend for blood sugar to remain below 140 fasting and less than 200 after meals. Further adjustment and medication may be required. Patient may need additional medication. This can be further addressed by his PCP. Patient has hypertension. Medications have been adjusted. Patient no longer on nifedipine. At discharge, Patient will continue with metoprolol 50 mg 1 pill twice daily and lisinopril 10 mg 1 pill twice daily. Recommend blood pressure to remain below 150/80. Further adjustment in medication can be done by cardiology or his PCP. Patient has hyperlipidemia. At discharge patient will continue with Lipitor 40 mg daily. Patient likely with underlying GERD. Patient will continue with Pepcid 20 mg 1 pill twice daily. Patient with obesity, BMI 35.5. Patient will continue with lifestyle modification education. Vital Signs/Physical Exam: Temp Pulse Resp BP Pulse Ox 98 F 87 20 157/98 H 96 08/28/18 04:00 08/28/18 04:00 08/28/18 04:00 08/28/18 04:00 08/28/18 04:00 General: Alert, In no apparent distress, Oriented x3, Cooperative HEENT: Atraumatic, Mucous membr. moist/pink Neck: Supple Respiratory: Clear to auscultation bilaterally, Normal air movement Cardiovascular: Normal pulses, Regular rate/rhythm Gastrointestinal: Normal bowel sounds, Soft and benign, Non-distended, No tenderness, No masses, No rebound, No guarding Musculoskeletal: No erythema, No tenderness, No warmth Integumentary: No tenderness/swelling, No erythema, No warmth, No cyanosis Neurological: Normal speech, Normal strength at 5/5 x4 extr, Normal tone, Normal affect Laboratory Data at Discharge: WBC 9.5 K/uL (4.3-10.9) D 08/28/18 05:51 Hgb 14.3 g/dL (13.6-17.9) 08/28/18 05:51 Hct 40.9 % (39.6-49.0) 08/28/18 05:51 Plt Count 267 K/uL (152-406) 08/28/18 05:51 Sodium 138 mmol/L (136-145) 08/28/18 05:51 Potassium 3.7 mmol/L (3.5-5.1) 08/28/18 05:51 BUN 12 mg/dL (7-18) 08/28/18 05:51 Creatinine 0.76 mg/dL (0.55-1.3) 08/28/18 05:51 Glucose 176 mg/dL (74-106) H 08/28/18 05:51 Magnesium 2.3 mg/dL (1.8-2.4) 08/28/18 05:51 Total Bilirubin 1.0 mg/dL (0.2-1.0) 08/26/18 07:30 AST 18 U/L (15-37) 08/26/18 07:30 ALT 23 U/L (12-78) 08/26/18 07:30 Alkaline Phosphatase 76 U/L (45-117) 08/26/18 07:30 Troponin I 2.92 ng/mL (0.0-0.045) H* D 08/26/18 22:11 Triglycerides 151 mg/dL (<150) H 08/28/18 05:51 Cholesterol 161 mg/dL (<200) 08/28/18 05:51 HDL Cholesterol 35 mg/dL (40-60) L 08/28/18 05:51 Cholesterol/HDL Ratio 4.60 08/28/18 05:51 Home Medications: Aspirin 81 mg PO DAILY 08/26/18 Amox/Clavulanate [Augmentin 875-125 Tab*] 875 mg PO BID #14 tab 08/28/18 Atorvastatin Calcium [Lipitor] 40 mg PO BEDTIME #30 tab 08/28/18 Benzonatate [Tessalon Perle*] 100 mg PO TID PRN #10 cap 08/28/18 Famotidine [Pepcid*] 20 mg PO BID #60 tab 08/28/18 Lisinopril [Prinivil*] 10 mg PO BID #60 tab 08/28/18 Metformin HCl [Glucophage] 1,000 mg PO BID #60 tablet 08/28/18 Metoprolol Tartrate [Lopressor*] 50 mg PO BID 6AM 6PM #60 tab 08/28/18 Oseltamivir [Tamiflu*] 75 mg PO BID #4 cap 08/28/18 New Medications: Amox/Clavulanate [Augmentin 875-125 Tab*] 875 mg PO BID #14 tab Atorvastatin Calcium [Lipitor] 40 mg PO BEDTIME #30 tab Benzonatate [Tessalon Perle*] 100 mg PO TID PRN #10 cap PRN Reason: Cough Famotidine [Pepcid*] 20 mg PO BID #60 tab Lisinopril [Prinivil*] 10 mg PO BID #60 tab Metformin HCl [Glucophage] 1,000 mg PO BID #60 tablet Metoprolol Tartrate [Lopressor*] 50 mg PO BID 6AM 6PM #60 tab Oseltamivir [Tamiflu*] 75 mg PO BID #4 cap Patient Discharge Instructions: 1. Patient will need to follow up with PCP in 1 week to follow up this hospitalization. 2. Patient presented with left- sided chest pain. Patient found to be positive for Streptococcus and influenza B. pneumonia was also identified to the left retrocardiac area. Patient was admitted for further evaluation. In the process patient had initial troponin that was unremarkable. Subsequent troponin was elevated. This likely indicated non ST wave [place]. Patient seen and evaluated by Cardiology. No cardiac intervention was recommended due to his pneumonia and influenza. Echocardiogram unremarkable with normal ejection fraction. Patient without significant chest pain, shortness of breath, fever or chills. Patient did well in his stay. At discharge patient will continue with Augmentin 875 mg 1 pill twice daily for 7 days and Tamiflu 75 mg 1 pill twice daily for 2 days. Tessalon Perles 100 mg 1 pill 3 times a day as needed for cough will also be provided. Patient will also continue with aspirin 81 mg daily. Recommendation is for the patient to follow up with cardiology in 1-2 weeks to follow up on his care. Patient will likely require cardiac stress test to further assess his condition. This will be done as an outpatient once pneumonia and influenza has cleared. Recommendation to recheck chest x-ray in 2-4 weeks to monitor resolution. 3. Patient with diabetes. A1c 9.7. Patient previously on metformin at low dose. At discharge, metformin has been increased to 1000 mg 1 pill twice daily. Recommend to monitor blood sugar closely. Recommend for blood sugar to remain below 140 fasting and less than 200 after meals. Further adjustment and medication may be required. Patient may need additional medication. This can be further addressed by his PCP. 4. Patient has hypertension. Medications have been adjusted. Patient no longer on nifedipine. At discharge, Patient will continue with metoprolol 50 mg 1 pill twice daily and lisinopril 10 mg 1 pill twice daily. Recommend blood pressure to remain below 150/80. Further adjustment in medication can be done by cardiology or his PCP. 5. Patient has hyperlipidemia. At discharge patient will continue with Lipitor 40 mg daily. 6. Patient likely with underlying GERD. Patient will continue with Pepcid 20 mg 1 pill twice daily. 7. Patient with obesity, BMI 35.5. Patient will continue with lifestyle modification education. Diet: ADA Activity: Ad ar Time spent managing pt's care (in minutes): 55
[2018-08-28 10:59] VITALS: O2SAT 95
--- NOTE | 2018-08-28 11:21 | RAD REPORT ---
EXAM DESCRIPTION: RAD - Chest Pa And Lat (2 Views) - 08/28/2018 11:13 am CLINICAL HISTORY: follow up pneumonia Chest pain. COMPARISON: Chest Pa And Lat (2 Views) dated 08/27/2018; Chest Single View dated 08/26/2018 FINDINGS: Left retrocardiac opacities are again noted, unchanged. Linear subsegmental atelectasis is seen in the right mid lung. The heart is normal in size. No displaced fractures. IMPRESSION: No significant change in the left retrocardiac lung opacity since comparative study.
[2018-08-28] MEDS: FAMOTIDINE 20 MG TAB PO SCH (11:24)
[2018-08-28] MEDS: AMOX/K CLAV 875 MG TAB PO SCH (11:25)
[2018-08-28] MEDS: OSELTAMIVIR 75 MG CAP PO SCH (11:25)
[2018-08-28] MEDS: GUAIFENESIN 600 MG SA TAB PO SCH (11:25)
[2018-08-28] MEDS: ENOXAPARIN 100 MG/ML SYR SQ SCH (11:26)
[2018-08-28] MEDS: ASPIRIN EC 81 MG TAB PO SCH (11:26)
[2018-08-28 12:36] VITALS: TEMP 97.8
[2018-08-28 14:28] VITALS: BP 164/99
== END 2018-08-28 15:27 | disposition home or self-care (01) ==
LOC: ER 07:22 → ERHOLD 09:29 → 4TH 10:12
PROVIDERS: ADMIT Family Medicine; ATTEND Family Medicine
DX: J10.00 Influenza due to other identified influenza virus with unspecified type of pneumonia (principal); E11.9 Type 2 diabetes mellitus without complications; I10 Essential (primary) hypertension; E78.5 Hyperlipidemia, unspecified; E66.9 Obesity, unspecified; Z68.35 Body mass index [BMI] 35.0-35.9, adult; K21.9 Gastro-esophageal reflux disease without esophagitis
CPT/HCPCS: 36415; 71045; 71046; 80048; 80061; 80076; 81003; 81015; 82550; 82553; 82962; 83036; 83605; 83735; 84145; 84439; 84443; 84484; 85025; 87081; 87804; 93005; 93306; 99285; G0378; J0456; J0696; J1650; J7030